=== PATIENT | male | born 1995 | race Two or more races ===

== ENCOUNTER 2023-08-01 21:20 | Emergency (ER) | payer OTHER ==
[~2023-08-01] VITALS: Ht 175.3 cm; Wt 84.8 kg
[2023-08-01] MEDS ORDERED: LEXAPRO5 MG (21:34)
[2023-08-01] MEDS ORDERED: KETOROLAC TROMETHAMINE 30 MG VIAL IM STA (23:58)
[2023-08-02] MEDS ORDERED: GUAIFENESIN 200 MG/10 ML BLIST.PACK PO STA (00:01)
== END 2023-08-02 00:24 | disposition home or self-care (01) ==
LOC: ER 21:21
DX: J11.1 Influenza due to unidentified influenza virus with other respiratory manifestations (principal); Z91.013 Allergy to seafood; Z20.822 Contact with and (suspected) exposure to COVID-19

== ENCOUNTER 2023-11-23 22:26 | Emergency (ER) | payer OTHER ==
[~2023-11-23] VITALS: Ht 172.7 cm; Wt 71.7 kg
[~2023-11-23 22:26] MED LIST: LEXAPRO5 MG
[2023-11-23] MEDS ORDERED: LIDOCAINE HCL 1% 10ML VIAL PERCUT ONE (23:30)
[2023-11-23] MEDS ORDERED: TETANUS & DIPHTHERIA TOX,ADULT 0.5 ML VIAL IM ONE (23:30)
[2023-11-23] MEDS ORDERED: TETANUS DIPHTHERIA TOX. ADSOR 5 ML VIAL IM ONE (23:37)
[2023-11-23] MEDS ORDERED: LIDOCAINE HCL 1% 10ML VIAL ONE (23:37)
[2023-11-23] MEDS ORDERED: CEPHALEXIN500 M1 PO (23:40)
== END 2023-11-23 23:47 ==
LOC: ER 22:27
DX: S61.211A Laceration without foreign body of left index finger without damage to nail, initial encounter (principal); W25.XXXA Contact with sharp glass, initial encounter; Y93.89 Activity, other specified; Y92.89 Other specified places as the place of occurrence of the external cause; Y99.9 Unspecified external cause status; Z91.013 Allergy to seafood